=== PATIENT | female | born 1955 | race Caucasian/White ===

== ENCOUNTER 2020-11-13 09:02 | Outpatient (CLI) | payer OTHER, SELFPAY ==
--- NOTE | ~2020-11-13 | MM_ITS ---
EXAMINATION: MM screening [facility] BI w nicolas HISTORY: Screening mammogram TECHNIQUE: Craniocaudal and mediolateral oblique 3-D tomosynthesis images were obtained and synthetic 2-D images were generated. CAD analysis was submitted and interpreted. COMPARISON: 05/03/2019, 10/14/2017, 09/24/2015, 04/24/2015 BREAST PARENCHYMAL COMPOSITION: There are scattered areas of fibroglandular density. FINDINGS: A mass of the left breast persists but is decreased in size compared to prior examinations, consistent with a benign finding. There is no evidence of suspicious mass, calcification, or archite ctural distortion to suggest malignancy in either breast. There has been no suspicious interval pascual e. IMPRESSION: 1. No mammographic evidence of malignancy. 2. Recommend routine screening mammography in one year. BI-RADS Category 2: Benign finding(s). Reviewed, dictated and finalized at location D.
== END 2020-11-13 09:03 | disposition home or self-care (01) ==
PROVIDERS: PCP Family Medicine Adolescent Medicine; Visit Provider Family Medicine Adolescent Medicine
DX: Z12.31 Encounter for screening mammogram for malignant neoplasm of breast (principal)
CPT/HCPCS: 77063; 77067

== ENCOUNTER 2022-01-08 13:52 | Emergency (ER) | payer OTHER, SELFPAY ==
[2022-01-08] VITALS (15 sets, daily range): BP systolic 100–163; BP diastolic 72–109; PULSE 88–114; RESP 10–23; TEMP 36.8; O2SAT 96–100
--- NOTE | ~2022-01-08 | XR_ITS ---
EXAMINATION: XR chest 2V DATE: 01/08/2022 14:54 INDICATION: Syncope. Weakness. TECHNIQUE: Frontal and lateral views of the chest were obtained. COMPARISON: None. FINDINGS: A calcified left lung nodule is consistent with old granulomatous disease. No pleural effus ion or pneumothorax. The heart size is normal. There are changes of anterior fusion procedure in cerv ical spine. IMPRESSION: 1. No acute cardiopulmonary disease. Reviewed, dictated and finalized at location B.
--- NOTE | ~2022-01-08 | CT_ITS ---
EXAMINATION: CT brain wo con DATE: 01/08/2022 15:28 INDICATION: Syncope. Head injury. TECHNIQUE: Computed tomography (CT) of the head was performed without intravenous contrast. The mA wa s adjusted according to patient size. Iterative reconstruction technique was employed. The dose-lengt h product was 605.33 mGy-cm. COMPARISON: None FINDINGS: There is no intracranial hemorrhage, acute infarction, or abnormal intracranial mass lesion . The ventricles are normal in size. There are likely changes of ocular lens replacement surgeries. T here is mild mucosal thickening in the paranasal sinuses. There are small bilateral mastoid effusions . IMPRESSION: 1. Normal brain. Reviewed, dictated and finalized at location B. IMPRESSION: 1. Normal brain.
--- NOTE | 2022-01-08 14:28 | PC.NURSE ---
pt difficult to assess. unsure of any onset of symptoms or weight loss. states does not have much of an appetite and has decreased her sugar intake.
--- NOTE | 2022-01-08 14:31 | ECG_ITS ---
Measurements Intervals Cook Rate: 108 P: 1 WY: 126 QRS: 6 QRSD: 82 T: 47 QT: 322 QTc: 433 Interpretive Statements SINUS TACHYCARDIA OTHERWISE NORMAL ECG NO PREVIOUS ECG AVAILABLE FOR COMPARISON Electronically Signed On 01-08-2022 14:36:16 CDT by Colt Rojo M.D.
[2022-01-08 14:53] LABS: Basophils Absolute Auto 0.1 K/mm3 (0.0-0.1); Basophils Percent Auto 0.7 % (0.2-1.2); Eosinophils Absolute Auto 0.1 K/mm3 (0-0.3); Eosinophils Percent Auto 1.1 % (0-4.4); Hematocrit 44.3 % (37.0-47.0); Hemoglobin 14.4 g/dL (12.0-15.0); Immature Granulocyte Absolute 0.04 K/mm3 (0.00-0.031); Immature Granulocyte Percent A 0.5 % (0-0.5); Lymphocytes Absolute Auto 2.37 K/mm3 (0.9-3.2); Lymphocytes Percent Auto 27.1 % (18.3-44.2); Mean Corpuscular HGB Conc 32.5 g/dl (32-36); Mean Corpuscular Hemoglobin 30.7 pg (26-34); Mean Corpuscular Volume 94.5 fl (80-100); Mean Platelet Volume 10.8 fl (7.4-10.4); Monocytes Absolute Auto 0.6 K/mm3 (0.1-0.6); Monocytes Percent Auto 6.5 % (2.6-8.5); Neutrophils Absolute Auto 5.6 K/mm3 (1.3-6.7); Neutrophils Percent Auto 64.1 % (45.5-73.1); Platelet Count Result 238 k/mm3 (150-375); Red Blood Count 4.69 M/mm3 (4.2-5.4); Red Cell Distribution Width 13.2 % (11.5-14.5); White Blood Count 8.7 K/mm3 (4.5-10.0)
[2022-01-08 15:04] LABS: Alanine Aminotransferase 14 U/L (6-35); Albumin Level 4.8 g/dL (3.5-5.1); Alkaline Phosphatase 81 U/L (38-126); Ammonia < 9 umol/L (9-30); Anion Gap 8 mmol/L (8-16); Aspartate Amino Transferase 23 U/L (14-36); Bilirubin,Total 0.7 mg/dL (0.2-1.3); Blood Urea Nitrogen 12 mg/dL (7-17); Calcium 9.5 mg/dL (8.4-10.2); Carbon Dioxide 28 mmol/L (22-30); Chloride 99 mmol/L (98-107); Creatine Kinase 45 U/L (30-135); Estimated CRCL calculation 50 ml/min; Estimated Glomerular Filt Rate > 60; Ethanol < 10 mg/dL (<10); Glucose 100 mg/dL (65-110); Lipase 49 U/L (23-300); Magnesium 1.6 mg/dL (1.6-2.3); Potassium 4.3 mmol/L (3.4-5.0); Sodium 135 mmol/L (137-145)
[2022-01-08 15:05] LABS: INR 1.2; Lactic Acid Reflex 1.2 mmol/L (0.7-2.0); Prothrombin Time 14.2 Seconds (11.1-14.7)
[2022-01-08 15:06] LABS: Partial Thromboplastin Time 28.6 SECONDS (22.3-36.8)
[2022-01-08 15:07] LABS: D Dimer 0.43 ug/mL (<0.48)
[2022-01-08] MEDS: LACTATED RINGERS 1,000 ML 999 ML IV CONT (15:09)
--- NOTE | 2022-01-08 15:13 | ED.GENADULT ---
HPI - General Adult General Chief complaint: Syncope Stated complaint: syncope Time Seen by Provider: 01/08/22 14:12 Source: patient, family and RN notes reviewed Mode of arrival: ambulatory Limitations: no limitations History of Present Illness HPI narrative: This is a 66 year old female with history of anxiety who presents for evaluation of syncopal episodes. Patient reports she has been having episodes of syncope for 4 years . Reports she has been told that her syncopal episodes are due to severe anxiety. She reports these episodes were occurring once a month but it is now occurring once a week. She states yesterday she was laying in bed and she felt like she could not hear. She states she felt like she was going to pass out. She states she is not sure how long if she passed out. She reports 1 week ago she was anxious and stress . She stood up to get dressed and she states she passed out. She denies associated heart racing, shortness of breath, palpitations, chest pain, vomiting, diarrhea. Patient reports 30 pound weight loss in 5 months. She thinks this may be due to decrease appetite. She denies focal weakness or blurred vision. Patient's son saw patient today for the first time in a while so he brought her to ER for evaluation. She states she has been seen by PCP for syncope and she was told it was due to anxiety. She last saw her PCP 5 months ago. Related Data Allergies Allergy/AdvReac Type Severity Reaction Status Date / Time No Known Allergies Allergy Unverified 12/16/21 12:40 Review of Systems Review of Systems: All systems reviewed & are unremarkable except as noted in HPI and below Constitutional: Constitutional: Denies chills, Denies fatigue and Denies fever(s) Cardiovascular: Cardiovascular: Denies chest pain and Denies radiating jaw, neck or arm pain Respiratory: Respiratory: Denies chest congestion and Denies cough Gastrointestinal: Gastrointestinal: Denies abdominal pain, Denies bloating, Denies diarrhea, Denies nausea and Denies vomiting Musculoskeletal: Musculoskeletal: Reports back pain (chronic) Neurologic: Reports syncope, Denies headache(s) and Denies focal weakness Psychiatric: Psychiatric: Reports anxiety PMFSH Past Medical History Medical History (Updated 01/08/22 @ 16:44 by Andria Granados MD) Chronic pain Fibromyalgia Generalized anxiety disorder Surgical History Surgical History (Updated 01/08/22 @ 15:25 by Andria Granados MD) No pertinent past surgical history Social History Social History (Updated 01/08/22 @ 15:25 by Andria Granados MD) Smoking packs per day: 1 Smoking cigarettes per day: 20.0 Smoking status: Current every day smoker Exam Const: General: alert Nutritional Appearance: thin Orientation/consciousness: patient oriented x3 HENMT: Head: normal to inspection Face and sinus: normal facial exam Throat: posterior oropharynx normal Eyes: Pupils: Equal, round and reactive pupils present EOM: EOMs intact bilaterally Neck: Neck: normal visual inspection Chest: Chest palpation & inspection: normal inspection of the chest Resp: Effort & Inspection: normal respiratory effort Auscultation: clear to auscultation bilaterally and breath sounds present Cardio: Rate: regular rate Rhythm: regular rhythm Heart sounds: no murmurs GI: GI Palp: Yes Soft to palpation, No Tenderness to palpation present (GI) and No Guarding due to palpation present (GI) Auscultation: normal bowel sounds Back/Spine/Pelvis: Back: no CVA tenderness Skin: General skin exam: normal color Rashes: no rashes Neuro: General: patient oriented x3, moves all extremities, no focal motor deficits and CN's II-XI intact bilaterally Cranial nerves: Yes Nystagmus not present Speech: normal speech Extrem: General: normal to inspection and no pedal edema Psych: Affect: Anxious affect present Course Consultations Consultation #1: I Discussed with patient that labs
[2022-01-08 15:15] LABS: Troponin I < 0.012 ng/mL (0.000-0.034)
[2022-01-08 15:15] LABS: Appearance Urine Clear (Clear); Bilirubin Urine Negative (Negative); Blood Urine Negative (Negative); Color Urine Yellow (Yellow); Glucose Urine UA Negative (Negative); Ketones Urine Negative (Negative); Leukocyte Esterase Ur Negative LEU/UL (Negative); Nitrate Urine Negative (Negative); Protein Urine Negative (Negative); Specific Grav Ur <= 1.005 (1.001-1.035); Urobilinogen Urine 0.2 mg/dL (<2.0); pH Urine 5.5 (5.0-9.0)
[2022-01-08 15:27] LABS: Add Urine Microscopic? NO
[2022-01-08 16:16] LABS: Amphetamine Screen Urine Negative (Negative); Barbiturate Screen Urine Negative (Negative); Benzodiazepines Screen Urine Positive (Negative); Cannabinoid Screen Urine Negative (Negative); Cocaine Screen Urine Negative (Negative); Methadone Screen Urine Negative (Negative); Opiate Screen Urine Positive (Negative); Phencyclidine Screen Urine Negative (Negative)
[2022-01-08 16:20] LABS: Thyroid Stimulating Hormone Reflex 0.975 uIU/mL (0.465-4.68)
== END 2022-01-08 16:51 | disposition home or self-care (01) ==
PROVIDERS: Emergency Provider General Practice; PCP Family Medicine Adolescent Medicine
DX: R55 Syncope and collapse (principal); F41.1 Generalized anxiety disorder; M79.7 Fibromyalgia; F17.210 Nicotine dependence, cigarettes, uncomplicated; R00.0 Tachycardia, unspecified
CPT/HCPCS: 36415; 70450; 71046; 80053; 80307; 81003; 82140; 82550; 83605; 83690; 83735; 84443; 84484; 85025; 85380; 85610; 85730; 93005; 96360; 99284; J7120

== ENCOUNTER 2022-09-04 14:29 | Outpatient (CLI) | payer OTHER, SELFPAY ==
--- NOTE | ~2022-09-04 | MM_ITS ---
EXAMINATION: MM screening [facility] BI w nicolas HISTORY: Screening mammogram TECHNIQUE: Craniocaudal and mediolateral oblique 3-D tomosynthesis images were obtained and synthetic 2-D images were generated. CAD analysis was submitted and interpreted. COMPARISON: 11/13/2020, 05/13/2019, 10/20/2017 bilateral screening mammogram examinations BREAST PARENCHYMAL COMPOSITION: There are scattered areas of fibroglandular density. FINDINGS: Right breast: There is no evidence of suspicious mass, calcification, or architectural distortion to suggest malignancy in the right breast. There has been no suspicious interval change. Left breast: 3.5 x 5 mm circumscribed mass with grouped granular appearing macro calcifications is noted in the castillo perolateral left subareolar area. Diagnostic left mammogram with magnification views and left breast ultrasound examination are recommended. Diminished size of low-density circumscribed opacity in the left lateral subareolar area (currently m easuring roughly 1.6 x 1.8 cm compared to 1.8 x 2.1 cm on 11/13/2020), consistent with benign process. IMPRESSION: 1. 3.5 x 5 mm circumscribed mass with grouped calcifications, left superolateral subareolar area 2. Diagnostic left mammogram and targeted left breast ultrasound examination are recommended Reviewed, dictated and finalized at location A. GING INSPECTOR IMPRESSION: 1. 3.5 x 5 mm circumscribed mass with grouped calcifications, left superolatera l subareolar area 2. Diagnostic left mammogram and targeted left breast ultrasound examination nanci mosquera recommended
== END 2022-09-04 14:30 | disposition home or self-care (01) ==
PROVIDERS: PCP Family Medicine Adolescent Medicine; Visit Provider Family Medicine Adolescent Medicine
DX: Z12.31 Encounter for screening mammogram for malignant neoplasm of breast (principal); N63.42 Unspecified lump in left breast, subareolar
CPT/HCPCS: 77063; 77067

== ENCOUNTER 2022-09-18 13:20 | Outpatient (CLI) | payer OTHER, SELFPAY ==
--- NOTE | ~2022-09-18 | MMUS_ITS ---
EXAMINATION: MM diagnostic [facility] LT w nicolas, US breast LT limited HISTORY: 3.5 x 5 cm circumscribed mass with grouped granular appearing microcalcifications in the sup erolateral left subareolar area on September 04, 2022 screening mammogram TECHNIQUE: Additional 3-D tomosynthesis images of the left breast were performed and synthetic 2-D im ages were generated. CAD analysis was submitted and interpreted. High resolution left subareolar and upper outer quadrant breast ultrasound examination was performed. COMPARISON: , 11/13/2020 bilateral screening mammogram examinations FINDINGS: MAMMOGRAPHIC FINDINGS: There is a partly circumscribed approximately 1.6 cm mass density with possible small pinpoint depend ent layering calcifications in the superolateral subareolar area of the left breast. ULTRASOUND: At 1-2:00 near the nipple is an approximately 1.9 x 2.1 x 1.2 cm complicated cyst with dependent calc ifications, benign in appearance. No suspicious mass or suspicious shadowing is detected. IMPRESSION: 1. Benign finding 2. Routine annual mammographic screening is recommended BI-RADS Category 2: Benign finding(s). Reviewed, dictated and finalized at location A. RINATION OPERATOR IMPRESSION: 1. Benign finding 2. Routine annual mammographic screening is recommended BI-RADS Category 2: Benign finding(s).
== END 2022-09-18 13:21 | disposition home or self-care (01) ==
LOC: ANHIMG 13:23
PROVIDERS: PCP Family Medicine Adolescent Medicine; Visit Provider Family Medicine Adolescent Medicine
DX: N63.20 Unspecified lump in the left breast, unspecified quadrant (principal); R92.8 Other abnormal and inconclusive findings on diagnostic imaging of breast
CPT/HCPCS: 76642; 77061; 77065; G0279

== ENCOUNTER 2023-09-28 14:52 | Outpatient (CLI) | payer MEDICARE, SELFPAY ==
--- NOTE | ~2023-09-28 | MM_ITS ---
EXAMINATION: MM screening [facility] BI w nicolas HISTORY: Screening mammogram TECHNIQUE: Craniocaudal and mediolateral oblique 3-D tomosynthesis images were obtained and synthetic 2-D images were generated. CAD analysis was submitted and interpreted. COMPARISON: September 18, 2022 diagnostic left mammogram and limited left breast ultrasound September 04, 2022 bilateral screening mammogram November 13, 2020 bilateral screening mammogram BREAST PARENCHYMAL COMPOSITION: There are scattered areas of fibroglandular density. FINDINGS: Stable size and mammographic features of mass in the left superior subareolar area, measuri ng roughly 15 x 19 mm, documented to be a benign complicated cyst on September 18, 2022 left sonograph ic imaging. There is no evidence of suspicious mass, calcification, or architectural distortion to suggest malign olya in either breast. There has been no suspicious interval change. IMPRESSION: 1. Benign finding. No mammographic evidence of malignancy. 2. Recommend routine screening mammography in one year. BI-RADS Category 2: Benign finding(s). Reviewed, dictated and finalized at location A. 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
== END 2023-09-28 14:53 | disposition home or self-care (01) ==
PROVIDERS: PCP Family Medicine Adolescent Medicine; Visit Provider Family Medicine Adolescent Medicine
DX: Z12.31 Encounter for screening mammogram for malignant neoplasm of breast (principal)
CPT/HCPCS: 77063; 77067

== ENCOUNTER 2023-12-21 17:09 | Outpatient (CLI) | payer MEDICARE, SELFPAY ==
--- NOTE | ~2023-12-21 | XR_ITS ---
XR chest 2V 12/21/2023 17:22 Indication: Abnormal weight loss Procedure: 2 view chest Comparison: 01/08/2022 Findings: Heart size normal. No focal air space disease, pulmonary edema, pleural effusion or suspect ed pneumothorax. There is scoliosis. There is calcified granuloma left upper lobe. Impression: 1: No acute cardiopulmonary disease. Reviewed, dictated and finalized at location B. Impression: 1: No acute cardiopulmonary disease.
== END 2023-12-21 17:10 | disposition home or self-care (01) ==
LOC: ANHIMG 17:11
PROVIDERS: PCP Family Medicine Adolescent Medicine; Visit Provider Family Medicine Adolescent Medicine
DX: J44.9 Chronic obstructive pulmonary disease, unspecified (principal); R61 Generalized hyperhidrosis; R63.4 Abnormal weight loss
CPT/HCPCS: 71046

== ENCOUNTER 2024-12-12 13:28 | Outpatient (CLI) | payer MEDICARE, SELFPAY ==
--- NOTE | ~2024-12-12 | MM_ITS ---
EXAMINATION: MM screening paige BI w nicolas HISTORY: Screening TECHNIQUE: Craniocaudal and mediolateral oblique 3-D tomosynthesis images were obtained and synthetic 2-D images were generated. CAD analysis was submitted and interpreted. COMPARISON: Comparison to multiple prior studies sequentially, with oldest reviewed study dated 03/2019. BREAST PARENCHYMAL COMPOSITION: Dense: The breasts are heterogeneously dense, which may obscure small masses FINDINGS: There is a developing focal mass in the lower inner quadrant of the right breast, anterior third. There is an enlarging mass in the upper outer quadrant of the left breast with dependent calci fications. This was previously characterized as a complicated cyst, although given the enlargement, c orrelation with ultrasound recommended. IMPRESSION: 1. Developing right breast mass. Enlarging left breast mass. 2. Additional mammographic views and possible breast ultrasound are recommended. BI-RADS Category 0: Incomplete: Needs additional imaging evaluation. Reviewed, dictated and finalized at location B. IMPRESSION: 1. Developing right breast mass. Enlarging left breast mass. 2. Additional mammographic views and possible breast ultrasound are recommended . BI-RADS Category 0: Incomplete: Needs additional imaging evaluation.
--- OUTSIDE RECORDS SUMMARY | 2024-12-12 13:37 | XMS_ITS | Encounter Summary ---
Author Organization [facility] Address [address] [place] [id number] Care Team Providers Care School Year Nanny Name Role Phone Rao Orantes MD Primary Care Provider +1- [phone] Encounter Details Date Type Department Care Team (Latest Contact Info) Description 05/31/2018 Abstract [facility] , Maria Victoria Garcia MD Social History Tobacco Use Types Packs/Day Years Used Date Smoking Tobacco: Never Assessed Comments Unknown Sex and Gender Information Value Date Recorded Sex Assigned at Not on file Legal Sex Female 5:54 PM CDT Gender Identity Not on file Sexual Orientation Not on file documented as of this encounter Plan of Treatment Not on file documented as of this encounter Visit Diagnoses Not on filedocumented in this encounter Care Teams School Year Nanny Relationship Specialty Start Date End Date Rao Orantes MD [address] [address] PCP - General FAMILY PRACTICE 06/25/18 documented as of this encounter
--- OUTSIDE RECORDS SUMMARY | 2024-12-12 13:37 | XMS_ITS | Clinical Summary ---
Author Organization [facility] Address [address] [place] [id number] Care Team Providers Care Set Key Driver Name Role Phone Unknown, Notinfile Primary Care Provider Unavail able Allergies Active Allergy Reactions Criticality Noted Date Comments Morphine Vomiting Low 03/31/2024 Medications ondansetron (ZOFRAN) 4 mg tablet Take 1 tablet (4 mg total) by mouth every 6 (six) hours 12 tablet 3 Active meclizine (ANTIVERT) 25 mg tablet Take 1 tablet (25 mg total) by mouth 3 (three) times a day as needed for dizziness 30 tablet 3 Active Social History Tobacco Use Types Packs/Day Years Used Date Smoking Tobacco: Never Assessed Personal Safety Answer Date Recorded Have you ever been in or are you currently in a harmful physical or emotional relationship or is someone making you feel afraid or unsafe? Denies 03/31/2024 Comments Unknown Sex and Gender Information Value Date Recorded Sex Assigned at Not on file Legal Sex Female 10:36 PM HEEL WHEELER Gender Identity Not on file Sexual Orientation Not on file Obstetrics History Last Filed Vital Signs Vital Sign Reading Time Taken Comments Blood Pressure 127/86 03/31/2024 7:02 PM CDT Pulse 74 03/31/2024 7:02 PM CDT Temperature 36.8 C (98.3 F) 03/31/2024 3:06 PM CDT Respiratory Rate 20 03/31/2024 7:02 PM CDT Oxygen Saturation 95% 03/31/2024 7:02 PM CDT Inhaled Oxygen Concentration - - Weight 51.6 kg (113 lb 12.1 oz) 03/31/2024 3:06 PM CDT Height 175.3 cm (5' 9 ) 03/31/2024 3:06 PM CDT Body Mass Index 16.8 03/31/2024 3:06 PM CDT Plan of Treatment Health Maintenance Due Date Last Done Comments Colon Cancer Screening-Colonoscopy 1957 Depression Screening 1957 Fall Risk Assessment 1955 Hepatitis C Screening 1955 Osteoporosis Screening-Bone Density Scan 1957 DTaP/Tdap/Td Vaccine (1 - Tdap) 1968 Hepatitis B Screening 1975 Breast Cancer Screening-Mammogram 09/23/2016 016, 08/27/2014 Zoster Vaccine (2 of 2) 12/02/2020 10/07/2020 Well Visit 65+ 2022 Covid-19 Vaccine ( season) 2024 09/04/2021, 12/04/2020, 11/13/2020 Influenza Vaccine (Season Ended) 2025 05/22/2022, 04/21/2021, 04/29/2020 Pneumococcal vaccine 65+ Completed 05/22/2022, 11/2019 Procedures Procedure Name Priority Date/Time Associated Diagnosis Comments SCREENING MAMMOGRAM W JALEN Routine 09/24/2015 9:58 AM HEEL WHEELER from Last 3 Months or Most Recently Relevant to Health Maintenance Results * Screening Mammogram W Jalen (09/24/2015 9:58 AM HEEL WHEELER) Anatomical Region Laterality Modality Breast N/A Mammography 09/24/2015 9:58 AM HEEL WHEELER Narrative 09/25/2015 10:02 AM HEEL WHEELER HILDA GARCIA M.D. FINAL REPORT ACC# Date Time Exam [id number] Sep 24, 2015 09:58:00 [facility] [id number] Bilateral screen w jalen Technologist(s): Clementina Harp; ; EXAMINATION: Mammogram Technique: Bilateral Full-Field Digital Screening Mammogram and Digital Breast Tomosynthesis were performed. Views obtained: bilateral craniocaudal and bilateral mediolateral oblique. Computer Aided Detection of the 2D images was performed with R2, [employer] 1.3 version 9.3. Mammogram Findings: The present examination has been compared to a prior imaging study performed at [facility] on 2015. There are scattered areas of fibroglandular density. There is a mass in the left breast. Finding remains unchanged from the prior study. There is no suspicious abnormality in the right breast. IMPRESSION: Mass in the left breast is benign. Annual screening mammography is recommended. OVERALL FINAL ASSESSMENT: BI-RADS CATEGORY 2: Benign. Requested By: Dictated By: HILDA GARCIA M.D. on Sep 25 2015 10:02A This document has been electronically signed by: HILDA GARCIA M.D. on Sep 25 2015 10:02A [id number] Procedure Note Provider, MD Dior - 11/26/2016 HILDA GARCIA M.D. FINAL REPORT ACC# Date Time Exam [id number] Sep 24, 2015 09:58:00 [facility] [id number] Bilateral screen w jalen Technologist(s): Clementina Harp; ; EXAMINATION: Mammogram Technique: Bilateral Full-Field Digital Screening Mammogram and Digital Breast Tomosynthesis were performed. Views obtained: bilateral craniocaudaland bilateral mediolateral oblique. Computer Aided Detection of the 2Dimages was performed with [employer] 1.3 version 9.3. Mammogram Findings: The present examination has been compared to a prior imaging study performed at [facility] on 2015. There are scattered areas of fibroglandular density. There is a mass in the left breast. Finding remains unchanged from the prior study. There is no suspicious abnormality in the right breast. IMPRESSION: Mass in the left breast is benign. Annual screening mammography is recommended. OVERALL FINAL ASSESSMENT: BI-RADS CATEGORY 2: Benign. Requested By: Dictated By: HILDA GARCIA M.D. on Sep 25 2015 10:02A This document has been electronically signed by: HILDA GARCIA M.D. on Sep 25 2015 10:02A [id number] us Historical Provider MD CEBALLOS MAMMO PROCEDURES Sarai l Result from Last 3 Months or Most Recently Relevant to Health Maintenance Insurance [employer] [id number] [employer] HMO Care Teams Set Key Driver Relationship Specialty Start Date End Date Unknown, Notinfile PCP - General 10/18/22
--- OUTSIDE RECORDS SUMMARY | 2024-12-12 13:37 | XMS_ITS | Clinical Summary ---
Author Organization [facility] Address [address] [place] [address] Care Team Providers Care It Desktop Support Specialist Name Role Phone Rao Orantes MD Primary Care Provider +1- [phone] Allergies Active Allergy Reactions Criticality Noted Date Comments Morphine GI Upset 12/15/2018 Medications ALPRAZolam 1 MG tablet 07/07/2019 Active clonazePAM 0.5 MG tablet Take 1 tablet by mouth every 12 (twelve) hours as needed. 02/26/2014 Active cyclobenzaprine 10 MG tablet 06/29/2019 Active duloxetine 60 MG capsule 06/09/2019 Active gabapentin 600 MG tablet 07/07/2019 Active oxyCODONE-acetam inophen 10-325 MG tablet 06/30/2019 Active Active Problems No known active problems Family History Medical History Relation Comments Diabetes Father Cancer Mother Relation Status Comments Father Mother Social History Tobacco Use Types Packs/Day Years Used Date Smoking Tobacco: Every Day Smokeless Tobacco: Never Alcohol Use Standard Drinks/Week Comments No 0 (1 standard drink = 0.6 oz pur e alcohol) AUDIT-C Answer Date Recorded Frequency of Alcohol Consumption Never 07/13/2019 Average Number of Drinks Not on file 019 Frequency of Binge Drinking Not on file 06/25 Comments No Sex and Gender Information Value Date Recorded Sex Assigned at Not on file Legal Sex Female 5:54 PM CDT Gender Identity Not on file Sexual Orientation Not on file Last Filed Vital Signs Vital Sign Reading Time Taken Comments Blood Pressure 152/95 07/13/2019 1:20 PM ELIGIBILITY SPECIALIST Pulse 102 07/13/2019 1:20 PM ELIGIBILITY SPECIALIST Temperature 37.1 C (98.8 F) 07/13/2019 1:20 PM ELIGIBILITY SPECIALIST Respiratory Rate 18 07/13/2019 1:20 PM ELIGIBILITY SPECIALIST Oxygen Saturation 95% 07/13/2019 1:20 PM ELIGIBILITY SPECIALIST Inhaled Oxygen Concentration - - Weight 75.8 kg (167 lb) 07/13/2019 1:20 PM ELIGIBILITY SPECIALIST Height 175.3 cm (5' 9 ) 07/13/2019 1:20 PM ELIGIBILITY SPECIALIST Body Mass Index 24.66 07/13/2019 1:20 PM ELIGIBILITY SPECIALIST Plan of Treatment Health Maintenance Due Date Last Done Comments Colorectal Cancer Screening Colonoscopy (10 Years) 1957 Hepatitis C 1975 DTaP, Tdap and Td Vaccines ( 1 - Tdap) 1976 Pneumococcal Vaccine: 50+ Ye ars (1 of 2 - PCV) 1976 Mammogram Screening 1997 Zoster Vaccines (1 of 2) 2007 Annual Medicare Wellness Visit 2022 Dexa Scan (General) 2022 COVID-19 Vaccine (1 - 2023-2 5 season) 2024 RSV Immunization or 60+ Years (1 - 1-dose 75+ series) 2032 Meningococcal B Vaccine Aged Out No l onger eligible based on patient's age to complete this topic Meningococcal Vaccine Aged Out No chuck angelika eligible based on patient's age to complete this topic RSV Immunizations Under 20 Months Aged Out No longer eligible based on patient's age to complete this topic Insurance [employer] Care Teams It Desktop Support Specialist Relationship Specialty Start Date End Date Rao Orantes MD [address] [place] [id number] PCP - General FAMILY PRACTICE 06/25/18
--- OUTSIDE RECORDS SUMMARY | 2024-12-12 13:37 | XMS_ITS | Referral Summary ---
Author Organization [facility] Address [address] [place] [id number] Care Team Providers Care Control Room Technician Name Role Phone Unknown, Notinfile Primary Care [...] on file Legal Sex Female 10:36 PM HEALTH MANAGEMENT CONSULTANT Gender Identity Not on file Sexual Orientation [...] 03/31/2024 3:06 PM CDT Plan of Treatment Not on file Procedures Procedure Name Priority Date/Time Associated Diagnosis Comments SCREENING MAMMOGRAM W JALEN Routine 09/24/2015 9:58 AM HEALTH MANAGEMENT CONSULTANT from Last 3 Months or Most Recently Relevant to Health Maintenance Results * Screening Mammogram W Jalen (09/24/2015 9:58 AM HEALTH MANAGEMENT CONSULTANT) Anatomical Region Laterality Modality Breast N/A Mammography 09/24/2015 9:58 AM HEALTH MANAGEMENT CONSULTANT Narrative 09/25/2015 10:02 AM HEALTH MANAGEMENT CONSULTANT HILDA GARCIA M.D. FINAL REPORT ACC# Date Time Exam [id number] Sep 24, 2015 09:58:00 [facility] [id number] Bilateral screen w jalen Technologist(s): Clementina Harp; ; EXAMINATION: Mammogram Technique: Bilateral Full-Field Digital Screening Mammogram and Digital Breast Tomosynthesis were performed. Views obtained: bilateral craniocaudal and bilateral mediolateral oblique. Computer Aided Detection of the 2D images was performed with [employer].3 version 9.3. Mammogram Findings: The present examination has been compared to a prior imaging study performed at [facility] on 2015. There are scattered areas of [...] GARCIA M.D. on Sep 25 2015 10:02A [id number] Procedure Note Provider, MD Dior - 11/26/2016 HILDA GARCIA M.D. FINAL REPORT ACC# Date Time Exam [id number] Sep 24, 2015 09:58:00 [facility] [id number] Bilateral screen w jalen Technologist(s): Clementina Harp; ; EXAMINATION: Mammogram Technique: Bilateral Full-Field Digital Screening Mammogram and Digital Breast Tomosynthesis were performed. Views obtained: bilateral craniocaudaland bilateral mediolateral oblique. Computer Aided Detection of the 2Dimages was performed with [employer].3 version 9.3. Mammogram Findings: The present examination has been compared to a prior imaging study performed at [facility] on 2015. There are scattered areas of [...] GARCIA M.D. on Sep 25 2015 10:02A [id number] Historical Provider MD [facility]OS MAMMO PROCEDURES Sarai l Result from Last 3 Months or Most Recently Relevant to Health Maintenance Insurance [employer]ARE [id number] [employer] HMO Care Teams Control Room Technician Relationship Specialty Start Date End Date Unknown, Notinfile PCP - General 10/18/22
== END 2024-12-12 13:29 | disposition home or self-care (01) ==
PROVIDERS: PCP Family Medicine Adolescent Medicine; Visit Provider Family Medicine Adolescent Medicine
DX: Z12.31 Encounter for screening mammogram for malignant neoplasm of breast (principal); R92.8 Other abnormal and inconclusive findings on diagnostic imaging of breast
CPT/HCPCS: 77063; 77067

== ENCOUNTER 2024-12-15 13:15 | Outpatient (CLI) | payer MEDICARE, SELFPAY ==
--- NOTE | ~2024-12-15 | MMUS_ITS ---
EXAMINATION: MM diagnostic paige BI w nicolas, US breast BI limited HISTORY: Follow-up bilateral breast masses TECHNIQUE: Additional 3-D tomosynthesis images of the breasts were performed and synthetic 2-D images were generated. CAD analysis was submitted and interpreted. High resolution limited bilateral breast ultrasound was performed. COMPARISON: Comparison to multiple prior studies sequentially, with oldest reviewed study dated 03/2019. BREAST PARENCHYMAL COMPOSITION: Not dense: There are scattered areas of fibroglandular density. FINDINGS: MAMMOGRAPHIC FINDINGS: There is a small mass in the lower inner quadrant of the right breast, anterior third which is persis tent with spot compression views. There is central low density. There is a mass in the subareolar loc ation of the left breast with layering milk of calcium on medial lateral view, consistent with benign fibrocystic disease. ULTRASOUND: Limited right breast ultrasound: In the 12:00 position, subareolar location there is an oval circumsc ribed parallel oriented hypoechoic mass measuring 9 x 5 x 3 mm. There is parallel orientation, no int ernal vascularity and no posterior features. At 3:00 in the subareolar location the right breast ther e is a 5 mm cyst. Limited left breast ultrasound: At 1-2:00 position, subareolar location there is a 2 cm cyst. This co rresponds to the mammographic finding. IMPRESSION: 1. Probable benign 9 mm right breast mass at 12:00 in the subareolar location. No evidence for malign olya in the left breast. 2. Recommend 6 month follow-up Limited right breast ultrasound BI-RADS category 3, probably benign findings. Reviewed, dictated and finalized at location B. IMPRESSION: 1. Probable benign 9 mm right breast mass at 12:00 in the subareolar location. No evidence for malignancy in the left breast. 2. Recommend 6 month follow-up Limited right breast ultrasound BI-RADS category 3, probably benign findings.
--- OUTSIDE RECORDS SUMMARY | 2024-12-15 13:18 | XMS_ITS | Continuity of Care Document ---
Author Organization [facility] Address [address] [place] [address] Phone Care Team Providers Care Currency Examiner Name Role Phone Miah DUVAL, Clint Unavailable Unavailable Advance Directives Directive Yes / No Effective Date File Name No Information Encounters Encounter Description Practice Location Reason(s) For Visit Diagnoses Date Provider Providers Copied on Encounter [facility], [address], [place], [place], [id number], [place] tel:[phone] [facility] No Information Miah Jaramillo. [address], [place], [place], [id number], [place]. tel:[phone] Referring Provider: Alvaro Ramirez, [address], [place], [address]. tel:[phone] Family History Family Member Type Diagnosis Age At Onset No Information Payers Payer name Insurance type Covered constitution party ID Authoriza tion(s) [facility] [id number] Social History Type Description Quantity Date Captured Comments Sex Female Smoking Status No Information Chief Complaint And Reason For Visit No Information Reason For Referral Reason For Referral No Information History Of Present Illness Encounter Date Complaint History Of Prese nt Illness No Information Functional Status Date Functional Assessmen t No Information Instructions Date Instruction Additional Infor mation No Information Assessments Type Assessment Date No Information Patient Care Teams Name Effective Dates (start - stop) Status Members No Information
--- OUTSIDE RECORDS SUMMARY | 2024-12-15 13:18 | XMS_ITS | Clinical Summary ---
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 FINAL REPORT ACC# Date Time Exam [id number] Sep 24, 2015 09:58:00 [facility] [place] [id number] Bilateral screen w jalen Technologist(s): Clementina Harp; ; EXAMINATION: Mammogram Technique: Bilateral Full-Field Digital Screening Mammogram and Digital Breast Tomosynthesis were performed. Views obtained: bilateral craniocaudal and bilateral mediolateral oblique. Computer Aided Detection of the 2D images was performed with R2, Cenova 1.3 version 9.3. Mammogram Findings: The present examination has been compared to a prior imaging study performed at [facility] on 2015. There are scattered areas of [...] GARCIA M.D. on Sep 25 2015 10:02A [id number] Procedure Note Provider, MD Dior - 11/26/2016 HILDA GARCIA M.D. FINAL REPORT ACC# Date Time Exam [id number] Sep 24, 2015 09:58:00 [facility] [place] [id number] Bilateral screen w jalen Technologist(s): Clementina Harp; ; EXAMINATION: Mammogram Technique: Bilateral Full-Field Digital Screening Mammogram and Digital Breast Tomosynthesis were performed. Views obtained: bilateral craniocaudaland bilateral mediolateral oblique. Computer Aided Detection of the 2Dimages was performed with Unisfair 1.3 version 9.3. Mammogram Findings: The present examination has been compared to a prior imaging study performed at [facility] on 2015. There are scattered areas of [...] GARCIA M.D. on Sep 25 2015 10:02A [id number] [place] Historical Provider MD CEBALLOS MAMMO PROCEDURES Sarai l Result from Last 3 Months or Most Recently Relevant to Health Maintenance Insurance [employer] [id number] [employer] HMO Care Teams Athletic Field Custodian Relationship Specialty Start Date End Date Unknown, Notinfile PCP - General 10/18/22
--- OUTSIDE RECORDS SUMMARY | 2024-12-15 13:18 | XMS_ITS | Referral Summary ---
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 FINAL REPORT ACC# Date Time Exam [id number] Sep 24, 2015 09:58:00 [facility] [id number] Bilateral screen w jalen Technologist(s): Clementina Harp; ; EXAMINATION: Mammogram Technique: Bilateral Full-Field Digital Screening Mammogram and Digital Breast Tomosynthesis were performed. Views obtained: bilateral craniocaudal and bilateral mediolateral oblique. Computer Aided Detection of the 2D images was performed with Flattr.3 version 9.3. Mammogram Findings: The present examination has been compared to a prior imaging study performed at [facility] on 2015. There are scattered areas [...] GARCIA M.D. on Sep 25 2015 10:02A [id number] Procedure Note Provider, MD Dior - 11/26/2016 HILDA GARCIA M.D. FINAL REPORT ACC# Date Time Exam [id number] Sep 24, 2015 09:58:00 [facility] [id number] Bilateral screen w jalen Technologist(s): Clementina Harp; ; EXAMINATION: Mammogram Technique: Bilateral Full-Field Digital Screening Mammogram and Digital Breast Tomosynthesis were performed. Views obtained: bilateral craniocaudaland bilateral mediolateral oblique. Computer Aided Detection of the 2Dimages was performed with Flattr.3 version 9.3. Mammogram Findings: The present examination has been compared to a prior imaging study performed at [facility] on 2015. There are scattered areas [...] GARCIA M.D. on Sep 25 2015 10:02A [id number] Historical Provider MD CEBALLOS MAMMO PROCEDURES Sarai l Result from Last 3 Months or Most Recently Relevant to Health Maintenance Insurance [employer] [id number] [employer] HMO Care Teams Atmospheric Technician Relationship Specialty Start Date End Date Unknown, Notinfile PCP - General 10/18/22
== END 2024-12-15 13:16 | disposition home or self-care (01) ==
PROVIDERS: PCP Family Medicine Adolescent Medicine; Visit Provider Family Medicine Adolescent Medicine
DX: R92.8 Other abnormal and inconclusive findings on diagnostic imaging of breast (principal)
CPT/HCPCS: 76642; 77062; 77066; G0279